=== PATIENT | male | born 1945 | race Caucasian/White ===

== ENCOUNTER → 2018-01-30 07:16 | Outpatient (CLI) | payer MEDICARE, BC, SELFPAY ==
[2018-01-30 08:35] LABS: BUN Creatinine Ratio 22.5 (6-22); Blood Urea Nitrogen 18 mg/dL (9-20); Calcium 9.7 mg/dL (8.4-10.2); Carbon Dioxide 28 mmol/L (22-32); Chloride 104 mmol/L (98-107); Estimated Glomerular Filt Rate > 60.0 mL/min (>60); Glucose 150 mg/dL (80-110); HEMOLYSIS < 15 (0-50); Potassium 5.3 mmol/L (3.4-5.1); Sodium 143 mmol/L (137-145)
[2018-01-30 08:36] LABS: Hemoglobin A1C% w Est Avg Glu 6.6 % (4.0-6.0)
[2018-01-30 09:02] LABS: Prostate Specific Antigen 0.318 ng/mL (0.10-4.00)
== END ==
PROVIDERS: PCP Internal Medicine; Visit Provider Internal Medicine
DX: I10 Essential (primary) hypertension (principal); E11.9 Type 2 diabetes mellitus without complications; N40.0 Benign prostatic hyperplasia without lower urinary tract symptoms
CPT/HCPCS: 36415; 80048; 83036; 84153

== ENCOUNTER → 2019-11-15 14:42 | Outpatient (ROUT) | payer MEDICARE, BC, SELFPAY ==
[2019-11-15 15:34] LABS: Aspartate Aminotransferase 34 IU/L (17-59); BUN Creatinine Ratio 26.7 (6-22); Blood Urea Nitrogen 20 mg/dL (9-20); Calcium 9.8 mg/dL (8.4-10.2); Carbon Dioxide 27 mmol/L (22-32); Chloride 100 mmol/L (98-107); Cholesterol 139 mg/dL (140-199); Estimated Glomerular Filt Rate > 60.0 mL/min (>60); Glucose 176 mg/dL (80-110); HDL Cholesterol 44 mg/dL (40-60); HEMOLYSIS < 15 (0-50); LDL Cholesterol Calculated 71 mg/dL (<100); Potassium 4.3 mmol/L (3.4-5.1); Sodium 136 mmol/L (137-145); Triglycerides 121 mg/dL (35-150)
[2019-11-15 17:00] LABS: Hemoglobin A1C% w Est Avg Glu 7.3 % (4.0-6.0)
== END ==
PROVIDERS: Family Provider Internal Medicine; PCP Internal Medicine; Visit Provider Internal Medicine
DX: I10 Essential (primary) hypertension (principal); E78.2 Mixed hyperlipidemia; E11.9 Type 2 diabetes mellitus without complications
CPT/HCPCS: 80048; 80061; 83036; 84450

== ENCOUNTER → 2019-11-20 14:10 | Outpatient (CLI) | payer MEDICARE, BC, SELFPAY ==
[2019-11-20 14:26] LABS: Bacteria Urine None Seen
[2019-11-20 15:48] LABS: Appearance Urine UA CLEAR; Bilirubin Urine UA NEGATIVE (NEGATIVE); Color Urine UA YELLOW; Glucose Urine UA NEGATIVE (Negative); Ketones Urine UA NEGATIVE (NEGATIVE); Leukocyte Esterase Urine UA NEGATIVE (NEGATIVE); Nitrite Urine UA NEGATIVE (Negative); Occult Blood Urine UA 2+ (Negative); Protein Urine UA NEGATIVE (Negative); Specific Gravity Urine UA >=1.030 (1.000-1.035); Urobilinogen Urine UA 0.2 E.U./dL (0.2)
[2019-11-20 16:10] LABS: Culture Indicated Urine Cult Not Indicated; RBC Urine 5-10/HPF (0-5/HPF); Squamous Epithelial Cell Urine 0-1 /HPF (0-5/HPF); WBC Urine 0-1/HPF (0-5/HPF)
== END ==
PROVIDERS: Family Provider Internal Medicine; PCP Internal Medicine; Referring Provider Internal Medicine; Visit Provider Internal Medicine
DX: R31.9 Hematuria, unspecified (principal)
CPT/HCPCS: 81001

== ENCOUNTER → 2019-11-28 14:20 | Outpatient (CLI) | payer MEDICARE, BC, SELFPAY ==
--- NOTE | 2019-11-28 | DI.CT.S_ITS ---
PROCEDURE: CT ABDOMEN PELVIS WO/W CON INDICATIONS: Hematuria, unspecified TECHNIQUE: Optional 5 mm thick noncontrast images acquired from the diaphragm to the symphysis pubis. After the administration of intravenous contrast, 5 mm thick images acquired from the diaphragm to the symphysis pubis after a 10-minute delay. 2 mm thick coronal and sagittal reformats were then performed of the kidneys and ureters. For radiation dose reduction, the following was used: automated exposure control, adjustment of mA and/or kV according to patient size. COMPARISON: CT, KUB - CT (PNL), 03/19/2008, 7:10. CT, PELVIS WITH CONTRAST, 05/28/2009, 9:28. FINDINGS: Image quality: Excellent. Lung bases: Lung bases are clear. Heart size is normal. Urinary system: Both kidneys are normal in size, without hydronephrosis. There are one or two punctate nonobstructing right midpole intrarenal calculi. Parapelvic cysts in the left upper pole are present. The right UVJ is obscured partially by beam hardening artifact from right hip arthroplasty, but no definite ureteral calcifications are otherwise visualized. To the extent urinary bladder can be visualized, there are no discrete bladder calcifications. There are numerous brachytherapy seeds in a mildly enlarged prostate gland. Minor, physiologic perinephric fat stranding. There is normal bilateral renal enhancement. Renal calyces appear normal in morphology when filled with contrast. Opacified portions of both ureters demonstrate normal caliber. Bladder wall thickness is normal. Other solid organs: Liver is normal in size and enhancement. Gallbladder is normal . Biliary system is non dilated. Pancreas enhances normally. Spleen is normal in size and enhancement. No adrenal nodules. Peritoneum and bowel: Bowel loops demonstrate normal wall thickness and caliber. No free fluid or air. Nodes and vessels: No retroperitoneal or mesenteric adenopathy by size criteria. Aorta and inferior vena cava are normal in size. Abdominal wall: No ventral hernias. Pelvis: No pathologic free pelvic fluid. No inguinal hernias or adenopathy. Bones: No suspicious bony lesions. L4-5 posterior fusion hardware. Partial sacralization of the right L5 transverse process. Right hip arthroplasty components are in place. There is a benign bone island in the left iliac bone present on prior study. No vertebral body compression fractures. IMPRESSION: 1. Nonobstructing right intrarenal calcification, potentially etiology of hematuria. 2. No evidence of obstructive uropathy. 3. Brachytherapy seeds in the prostate gland. 4. Postsurgical changes in the bones as described. Dictated by: Evelia Lim M.D. on 11/28/2019 at 14:58 Approved by: Evelia Lim M.D. on 11/28/2019 at 15:14
== END ==
PROVIDERS: Family Provider Internal Medicine; PCP Internal Medicine; Referring Provider Student in an Organized Health Care Education/Training Program; Visit Provider Student in an Organized Health Care Education/Training Program
DX: R31.9 Hematuria, unspecified (principal); N20.0 Calculus of kidney
CPT/HCPCS: 74178; Q9967

== ENCOUNTER → 2020-05-21 14:30 | Outpatient (ROUT) | payer MEDICARE, BC, SELFPAY ==
[2020-05-21 14:48] LABS: Add Manual Diff / Slide Review NO; Basophils Absolute Auto 100 /uL (0-100); Eosinophils Absolute Auto 200 /uL (0-450); Eosinophils Percent Auto 3.7 % (2-4); Hematocrit 40.7 % (41-53); Hemoglobin 13.8 g/dL (13.5-17.5); Lymphocytes Absolute Auto 1700 /uL (1100-4500); Lymphocytes Percent Auto 26.6 % (25-40); Mean Corpuscular HGB Conc 33.8 % (30-36); Mean Corpuscular Hemoglobin 30.8 PG (26-34); Mean Corpuscular Volume 91.2 fL (80-100); Monocytes Absolute Auto 400 /uL (0-900); Neutrophils Absolute Auto 4000 /uL (1500-7000); Neutrophils Percent Auto 62.7 % (50-75); Platelet Count 225 X10^3/uL (150-400); Red Blood Cell Count 4.46 X10^6/uL (4.5-5.9); Red Cell Distribution Width 13.4 % (11.6-14.8); White Blood Cell Count 6.4 X10^3/uL (4.5-11.0)
[2020-05-21 15:28] LABS: TSH w/ Reflex to FT4 3.82 uIU/mL (0.47-4.68)
[2020-05-21 15:43] LABS: Alanine Aminotransferase 33 IU/L (<50); Albumin 4.2 g/dL (3.5-5.0); Albumin Globulin Ratio 1.4 (1.0-2.8); Alkaline Phosphatase 86 U/L (38-126); Aspartate Aminotransferase 32 IU/L (17-59); Bilirubin Total 0.4 mg/dL (0.2-1.3); Blood Urea Nitrogen 18 mg/dL (9-20); Calcium 9.6 mg/dL (8.4-10.2); Carbon Dioxide 29 mmol/L (22-32); Chloride 99 mmol/L (98-107); Cholesterol 150 mg/dL (140-199); Estimated Glomerular Filt Rate > 60.0 mL/min (>60); Globulin 2.9 g/dL (1.7-4.1); Glucose 312 mg/dL (80-110); HDL Cholesterol 42 mg/dL (40-60); HEMOLYSIS < 15 (0-50); LDL Cholesterol Calculated 81 mg/dL (<100); Potassium 4.7 mmol/L (3.4-5.1); Sodium 133 mmol/L (137-145); Total Protein 7.1 g/dL (6.3-8.2); Triglycerides 135 mg/dL (35-150)
[2020-05-21 16:00] LABS: Hemoglobin A1C% w Est Avg Glu 10.1 % (4.0-6.0)
== END ==
PROVIDERS: Family Provider Internal Medicine; PCP Internal Medicine; Visit Provider Internal Medicine
DX: N40.0 Benign prostatic hyperplasia without lower urinary tract symptoms (principal); E11.69 Type 2 diabetes mellitus with other specified complication
CPT/HCPCS: 80053; 80061; 83036; 84153; 84443; 85025

== ENCOUNTER → 2021-10-12 11:07 | Outpatient (CLI) | payer MEDICARE, BC, SELFPAY ==
[2021-10-12 11:46] LABS: Hemoglobin A1C% w Est Avg Glu 7.7 % (4.0-6.0)
[2021-10-12 11:47] LABS: Hematocrit 38.6 % (41-53); Hemoglobin 13.5 g/dL (13.5-17.5); Mean Corpuscular HGB Conc 34.9 % (30-36); Mean Corpuscular Hemoglobin 31.3 PG (26-34); Mean Corpuscular Volume 89.5 fL (80-100); Platelet Count 278 X10^3/uL (150-400); Red Blood Cell Count 4.32 X10^6/uL (4.5-5.9); White Blood Cell Count 5.9 X10^3/uL (4.5-11.0)
[2021-10-12 12:05] LABS: Alanine Aminotransferase 27 IU/L (<50); Albumin 4.6 g/dL (3.5-5.0); Albumin Globulin Ratio 1.4 (1.0-2.8); Alkaline Phosphatase 75 U/L (38-126); Aspartate Aminotransferase 30 IU/L (17-59); BUN Creatinine Ratio 20.3 (6-22); Bilirubin Total 0.3 mg/dL (0.2-1.3); Blood Urea Nitrogen 16 mg/dL (9-20); Calcium 9.5 mg/dL (8.4-10.2); Carbon Dioxide 29 mmol/L (22-32); Chloride 99 mmol/L (98-107); Cholesterol 150 mg/dL (140-199); Estimated Glomerular Filt Rate > 60 mL/min (>60); Globulin 3.2 g/dL (1.7-4.1); Glucose 182 mg/dL (80-110); HDL Cholesterol 45 mg/dL (40-60); HEMOLYSIS < 15 (0-50); LDL Cholesterol Calculated 86 mg/dL (<100); Potassium 4.5 mmol/L (3.4-5.1); Sodium 135 mmol/L (137-145); Total Protein 7.8 g/dL (6.3-8.2); Triglycerides 94 mg/dL (35-150)
[2021-10-12 12:25] LABS: Creatinine Urine Random 108.7 mg/dL
[2021-10-12 12:28] LABS: Prostate Specific Antigen 1.18 ng/mL (0.10-4.00)
[2021-10-12 12:29] LABS: Microalbumi Creatinin Ratio Ur 7.3 ug/mg CR (<30); Microalbumin Urine Random 0.8 mg/dL (0-1.6)
[2021-10-12 12:53] LABS: TSH w/ Reflex to FT4 3.58 uIU/mL (0.47-4.68)
== END ==
PROVIDERS: Family Provider Internal Medicine; PCP Internal Medicine; Referring Provider Internal Medicine; Visit Provider Internal Medicine
DX: E11.69 Type 2 diabetes mellitus with other specified complication (principal); E78.5 Hyperlipidemia, unspecified; I10 Essential (primary) hypertension; E78.2 Mixed hyperlipidemia; N13.8 Other obstructive and reflux uropathy; N40.1 Benign prostatic hyperplasia with lower urinary tract symptoms
CPT/HCPCS: 36415; 80053; 80061; 82043; 82570; 83036; 84153; 84443; 85027

== ENCOUNTER → 2021-10-26 09:41 | Outpatient (CLI) | payer MEDICARE, BC, SELFPAY ==
[2021-10-26 13:01] LABS: COVID19 -Nasal RAPID Negative (Negative)
== END ==
PROVIDERS: Family Provider Internal Medicine; PCP Internal Medicine; Visit Provider Surgery
DX: Z01.812 Encounter for preprocedural laboratory examination (principal); Z20.822 Contact with and (suspected) exposure to COVID-19
CPT/HCPCS: 87635; C9803

== ENCOUNTER 2021-10-27 08:35 | Day surgery (SDC) | payer MEDICARE, BC, SELFPAY ==
[2021-10-27] MEDS: LACTATED RINGERS 1,000 ML 200 ML IV (08:45)
[2021-10-27 09:12] VITALS: BP 180/87; PULSE 78; RESP 16; TEMP 37.1; O2SAT 97; BMI 27.4
--- NOTE | 2021-10-27 09:38 | PM.HP.1 ---
History of Present Illness History of Present Illness Date Patient Seen: 10/27/21 Time Patient Seen: 09:38 Chief complaint: SDC Narrative: The patient presents for colorectal screening. Personal history of colonic polyps with previous colonoscopy.. No personal or family history of colon cancer. On further history denies any recent gastrointestinal symptoms. No nausea, vomiting, abdominal pain, loss of appetite, unexplained weight loss, change in bowel habits, diarrhea, constipation, melena, hematochezia, or bright red blood per rectum. Patient History Medical History Allergic rhinitis BPH w urinary obs/LUTS Cerumen impaction DM type 2 with diabetic dyslipidemia Essential hypertension Mixed hyperlipidemia Neoplasm of uncertain behavior of skin Overweight Primary osteoarthritis involving multiple joints Family & Social History Social History: household members spouse Tobacco & Substance use: Smoking Status Never smoker alcohol intake current alcohol intake frequency 0-2 drinks per day Substance Use Type does not use Meds Home Medications and Allergies Home Medications Medication Instructions Recorded Confirmed Type loratadine 10 mg tablet (Claritin) 10 mg PO DAILY 10/12/21 10/27/21 History losartan 50 mg tablet 50 mg PO BEDTIME #90 tabs 10/12/21 10/27/21 Rx metformin 500 mg tablet 1,000 mg PO BID #360 tabs 10/12/21 10/27/21 Rx pravastatin 40 mg tablet 40 mg PO BEDTIME #90 tabs 10/12/21 10/27/21 Rx sitagliptin 50 mg tablet (Januvia) 50 mg PO DAILY #90 tabs 10/12/21 10/27/21 Rx Allergies Allergy/AdvReac Type Severity Reaction Status Date / Time simvastatin [SIMVASTATIN] Allergy Unknown Verified 10/27/21 08:47 Exam Vital Signs (past 8 hours): - 10/27/21 09:12 Temperature 98.7 F Pulse Rate 78 Respiratory Rate 16 Blood Pressure 180/87 H Pulse Oximetry 97 Oxygen Delivery Method Room Air Oxygen Delivery Method Room Air Narrative Exam Narrative: General adult male alert oriented no acute distress Abdomen soft nontender nondistended Assessment & Plan Assessment & Plan narrative: The patient requires colorectal screening and colonoscopy is recommended. Technical details were discussed. Risks, benefits, alternatives explained. Risks including but not limited to myocardial infarction, aspiration, bleeding, pain, missed lesion, incomplete examination, need for further radiographic studies, colonic perforation, and need for major abdominal surgery were discussed. All questions were answered to their satisfaction, and they are in agreement with this plan. Time Spent With Patient Critical Care time: I spent a total of [] minutes of critical care time on this patient's care today; this time is exclusive of procedural time.
[2021-10-27] MEDS: fentaNYL 250 MCG/5 ML INJ 150 MCG IV (09:55)
[2021-10-27] MEDS: MIDAZOLAM 5 MG/5 ML VIAL 4 MG IV (09:55)
--- NOTE | 2021-10-27 10:10 | PM.OP.COLON ---
Operative Date/Time/Diagnoses Date of procedure: 10/27/21 Time of procedure: 10:10 Pre-op diagnosis: Personal history of colonic polyps Post-op diagnosis: same Procedure & Clinicians Study performed: Colonoscopy Same procedure as scheduled: Yes Indications: Personal history of colonic polyps Surgeon: Bryce Swift Procedure Notes Procedure in detail: Medications: Conscious sedation using 4mg IV midazolam and 150mcg IV of fentanyl The history and physical was performed/updated and the patient is ASA class is 2. The procedure was discussed in detail with the patient. Potential risks complications including infection, bleeding, missed diagnosis, perforation, need for surgery, and were explained. Their questions were answered and informed consent was obtained. Patient was brought to the procedure room and placed standard monitoring equipment. The patient's vital signs were monitored continuously throughout the entire procedure. Prior to starting time-out was performed. The patient was placed in the left lateral recumbent position. Procedural sedation was administered. Examination began with a thorough inspection of the perianal area there was no evidence of fissures, fistulae, external hemorrhoids or cutaneous malignancy. The colonoscopy scope was then placed into the anal canal and was advanced to the cecum, which was identified by the ileocecal valve, the appendiceal orifice and the confluence of the taenia. The scope was then slowly withdrawn examining colon thoroughly in all directions, irrigating it of any residual stool. FINDINGS 1. No masses or polyps 2. Sigmoid diverticulosis-mild The patient tolerated the procedure well. They will be discharged once criteria are met. The prep was of good/excellent quality. The withdrawl time was 6 minutes. The sedation time was 19minutes. Specimen(s): none sent Complications: none Impression: Normal colonoscopy Post-procedure Recommendations: Colonoscopy in 10 years and High fiber diet Disposition: same day surgery
[2021-10-27 10:15] VITALS: BP 137/80; PULSE 87; RESP 16; TEMP 36.3; O2SAT 97
[2021-10-27 10:20] VITALS: BP 148/56; PULSE 87; RESP 14; O2SAT 97
[2021-10-27 10:25] VITALS: BP 140/84; PULSE 86; RESP 16; O2SAT 96
[2021-10-27 10:31] VITALS: BP 157/88; PULSE 89; RESP 14; TEMP 36.6; O2SAT 95
== END 2021-10-27 10:45 | disposition home or self-care (01) ==
PROVIDERS: Family Provider Internal Medicine; PCP Internal Medicine; Referring Provider Surgery; Visit Provider Surgery
PROC: 0DJD8ZZ Inspection of Lower Intestinal Tract, Via Natural or Artificial Opening Endoscopic (ICD-10-PCS; CPT 45378; principal; 2021-10-27 09:30)
DX: Z12.11 Encounter for screening for malignant neoplasm of colon (principal); Z86.010 Personal history of colon polyps; K57.30 Diverticulosis of large intestine without perforation or abscess without bleeding
CPT/HCPCS: G0105; 99152; J2250; J3010

== ENCOUNTER → 2022-07-08 10:32 | Outpatient (CLI) | payer MEDICARE, BC, SELFPAY ==
[2022-07-08 10:54] LABS: Hematocrit 40.4 % (41-53); Hemoglobin 13.4 g/dL (13.5-17.5); Mean Corpuscular Volume 90.8 fL (80-100); Platelet Count 276 X10^3/uL (150-400); Red Blood Cell Count 4.45 X10^6/uL (4.5-5.9); Red Cell Distribution Width 13.3 % (11.6-14.8); White Blood Cell Count 6.1 X10^3/uL (4.5-11.0)
[2022-07-08 11:28] LABS: Alanine Aminotransferase 25 IU/L (<50); Albumin 4.2 g/dL (3.5-5.0); Albumin Globulin Ratio 1.4 (1.0-2.8); Alkaline Phosphatase 93 U/L (38-126); Aspartate Aminotransferase 23 IU/L (17-59); BUN Creatinine Ratio 22.1 (6-22); Bilirubin Total 0.4 mg/dL (0.2-1.3); Blood Urea Nitrogen 15 mg/dL (9-20); Calcium 9.5 mg/dL (8.4-10.2); Carbon Dioxide 28 mmol/L (22-32); Chloride 98 mmol/L (98-107); Cholesterol 150 mg/dL (140-199); Estimated Glomerular Filt Rate > 60 mL/min (>60); Globulin 3.1 g/dL (1.7-4.1); Glucose 211 mg/dL (80-110); HDL Cholesterol 45 mg/dL (40-60); HEMOLYSIS < 15 (0-50); LDL Cholesterol Calculated 80 mg/dL (<100); Potassium 4.4 mmol/L (3.4-5.1); Sodium 136 mmol/L (137-145); Total Protein 7.3 g/dL (6.3-8.2); Triglycerides 126 mg/dL (35-150)
[2022-07-08 11:42] LABS: Hemoglobin A1C% w Est Avg Glu 9.8 % (4.0-6.0)
[2022-07-08 11:49] LABS: TSH w/ Reflex to FT4 4.56 uIU/mL (0.47-4.68)
[2022-07-08 12:15] LABS: Vitamin B12 264 pg/mL (239-931)
[2022-07-08 15:10] LABS: Microalbumi Creatinin Ratio Ur 8.9 ug/mg CR (<30); Microalbumin Urine Random 0.7 mg/dL (0-1.6)
== END ==
PROVIDERS: Family Provider Internal Medicine; PCP Internal Medicine; Referring Provider Internal Medicine; Visit Provider Internal Medicine
DX: C43.4 Malignant melanoma of scalp and neck (principal); E11.69 Type 2 diabetes mellitus with other specified complication; E78.2 Mixed hyperlipidemia; I10 Essential (primary) hypertension; E53.8 Deficiency of other specified B group vitamins; E78.5 Hyperlipidemia, unspecified
CPT/HCPCS: 36415; 80053; 80061; 82043; 82570; 82607; 83036; 84443; 85027

== ENCOUNTER → 2022-09-24 13:29 | Outpatient (CLI) | payer MEDICARE, BC, SELFPAY ==
--- NOTE | 2022-09-24 | DI.US.S_ITS ---
PROCEDURE: US SOFT TISSUE HEAD AND NECK INDICATIONS: MASS ON RIGHT SIDE posterior to the shoulder TECHNIQUE: Real-time scanning was performed of the neck region of interest, with image documentation. COMPARISON: None. FINDINGS: Palpable abnormality in the region of the posterior right shoulder. No mass, adenopathy, or fluid collection. IMPRESSION: No mass in the region of the palpable abnormality. Dictated by: Dhaval Reardon M.D. on 09/24/2022 at 18:29 Approved by: Dhaval Reardon M.D. on 09/24/2022 at 18:30
== END ==
PROVIDERS: Family Provider Internal Medicine; PCP Internal Medicine; Referring Provider Physician Assistant; Visit Provider Physician Assistant
DX: R22.2 Localized swelling, mass and lump, trunk (principal)
CPT/HCPCS: 76536

== ENCOUNTER → 2023-01-10 11:08 | Outpatient (CLI) | payer MEDICARE, BC, SELFPAY | PROVIDERS: Family Provider Internal Medicine; PCP Internal Medicine; Referring Provider Internal Medicine; Visit Provider Internal Medicine | DX: E11.69 Type 2 diabetes mellitus with other specified complication (principal); E78.5 Hyperlipidemia, unspecified | CPT/HCPCS: 36415; 83036 ==

== ENCOUNTER → 2023-04-12 11:26 | Outpatient (CLI) | payer MEDICARE, BC, SELFPAY ==
[2023-04-12 13:04] LABS: BUN Creatinine Ratio 21.3 (6-22); Blood Urea Nitrogen 16 mg/dL (9-20); Calcium 10.3 mg/dL (8.4-10.2); Carbon Dioxide 28 mmol/L (22-32); Chloride 92 mmol/L (98-107); Estimated Glomerular Filt Rate > 60 mL/min (>60); Glucose 174 mg/dL (80-110); HEMOLYSIS < 15 (0-50); Potassium 4.2 mmol/L (3.4-5.1); Sodium 131 mmol/L (137-145)
== END ==
PROVIDERS: Family Provider Internal Medicine; PCP Internal Medicine; Referring Provider Internal Medicine; Visit Provider Internal Medicine
DX: E11.69 Type 2 diabetes mellitus with other specified complication (principal); I10 Essential (primary) hypertension; E78.5 Hyperlipidemia, unspecified
CPT/HCPCS: 36415; 80048; 83036

== ENCOUNTER → 2023-07-21 10:48 | Outpatient (CLI) | payer MEDICARE, BC, SELFPAY ==
[2023-07-21 12:18] LABS: Hemoglobin 13.1 g/dL (13.5-17.5); Mean Corpuscular HGB Conc 35.5 % (30-36); Mean Corpuscular Hemoglobin 31.2 PG (26-34); Platelet Count 385 X10^3/uL (150-400); Red Cell Distribution Width 13.1 % (11.6-14.8); White Blood Cell Count 7.8 X10^3/uL (4.5-11.0)
[2023-07-21 12:31] LABS: Hemoglobin A1C% w Est Avg Glu 7.2 % (4.0-6.0)
[2023-07-21 12:49] LABS: Alanine Aminotransferase 16 IU/L (<50); Albumin 4.5 g/dL (3.5-5.0); Albumin Globulin Ratio 1.4 (1.0-2.8); Alkaline Phosphatase 73 U/L (38-126); Aspartate Aminotransferase 27 IU/L (17-59); BUN Creatinine Ratio 22.7 (6-22); Bilirubin Total 0.7 mg/dL (0.2-1.3); Blood Urea Nitrogen 15 mg/dL (9-20); Calcium 9.4 mg/dL (8.4-10.2); Carbon Dioxide 28 mmol/L (22-32); Chloride 88 mmol/L (98-107); Cholesterol 123 mg/dL (140-199); Estimated Glomerular Filt Rate > 60 mL/min (>60); Globulin 3.3 g/dL (1.7-4.1); Glucose 223 mg/dL (80-110); HDL Cholesterol 50 mg/dL (40-60); HEMOLYSIS 17 (0-50); LDL Cholesterol Calculated 64 mg/dL (<100); Potassium 3.8 mmol/L (3.4-5.1); Sodium 124 mmol/L (137-145); Total Protein 7.8 g/dL (6.3-8.2); Triglycerides 43 mg/dL (35-150)
[2023-07-21 13:10] LABS: TSH w/ Reflex to FT4 2.74 uIU/mL (0.47-4.68)
[2023-07-21 13:11] LABS: Prostate Specific Antigen 1.16 ng/mL (0.10-4.00)
[2023-07-21 17:44] LABS: Creatinine Urine Random 45.7 mg/dL
[2023-07-21 17:46] LABS: Microalbumin Urine Random < 0.6 mg/dL (0-1.6)
== END ==
PROVIDERS: Family Provider Internal Medicine; PCP Internal Medicine; Referring Provider Internal Medicine; Visit Provider Internal Medicine
DX: E78.2 Mixed hyperlipidemia (principal); E11.69 Type 2 diabetes mellitus with other specified complication; N40.1 Benign prostatic hyperplasia with lower urinary tract symptoms; I10 Essential (primary) hypertension; E78.5 Hyperlipidemia, unspecified; N13.8 Other obstructive and reflux uropathy
CPT/HCPCS: 36415; 80053; 80061; 82043; 82570; 83036; 84153; 84443; 85027

== ENCOUNTER → 2023-08-12 11:17 | Outpatient (CLI) | payer MEDICARE, BC, SELFPAY ==
--- NOTE | 2023-08-12 11:18 | DI.CT.S_ITS ---
PROCEDURE: CT HEAD/BRAIN WO CON INDICATIONS: parkinsomism, rule out CVA TECHNIQUE: Noncontrast 4.5 mm thick angled axial sections acquired from the foramen magnum to the vertex, with coronal and sagittal reformats. For radiation dose reduction, the following was used: automated exposure control, adjustment of mA and/or kV according to patient size. COMPARISON: None. FINDINGS: Image quality: Diagnostic. CSF spaces: Basal cisterns are patent. No extra-axial fluid collections. Ventricles are normal in size and shape. Brain: No midline shift. No intracranial masses or hemorrhage. Parada-white matter interface is normal. Moderate cerebral and cerebellar volume loss with multifocal white matter chronic ischemic change noted. Atherosclerotic calcification noted associated with cavernous segments of both internal carotid arteries. Skull and face: Calvarium and visualized facial bones are intact, without suspicious lesions. Sinuses: Visualized sinuses and mastoids are clear. IMPRESSION: Moderate atrophy and mild white matter chronic ischemic change without acute hemorrhage or mass effect Approved by: Kishan Celis M.D. on 08/12/2023 at 18:30
== END ==
LOC: CT 11:18
PROVIDERS: Family Provider Internal Medicine; PCP Internal Medicine; Referring Provider Internal Medicine; Visit Provider Internal Medicine
DX: I65.23 Occlusion and stenosis of bilateral carotid arteries (principal); R29.818 Other symptoms and signs involving the nervous system
CPT/HCPCS: 70450

== ENCOUNTER → 2023-08-27 11:12 | Outpatient (CLI) | payer MEDICARE, BC, SELFPAY ==
--- NOTE | 2023-08-27 11:14 | DI.MRI.S_ITS ---
PROCEDURE: MR HEAD/BRAIN WO CON INDICATIONS: Parkinsons, please evaluate for stroke TECHNIQUE: Non-contrast axial T1 spin echo, axial T2 fast spin echo, sagittal and axial FLAIR, coronal T2 fast spin echo, axial gradient echo, axial diffusion and ADC through the brain. COMPARISON: [facility], CT, CT HEAD/BRAIN WO CON, 08/12/2023, 11:30. FINDINGS: Image quality: This examination is limited by involuntary motion artifact. CSF spaces: Ventricles appear symmetric in size and shape. Basal cisterns are patent. No extra-axial fluid collections. Brain: No intracranial bleeds or mass effects. There is cerebral volume loss for age. There are periventricular and deep white matter chronic small vessel ischemic changes. Brainstem appears normal. Diffusion-weighted images show no acute infarct. No chronic ischemic insults. Normal intravascular flow voids are present. Skull and face: Prominent scalp thinning can be seen involving the left posterior superior region. Calvarial bone marrow is normal in signal. Orbits are normal. Sinuses: Sinuses and mastoids are clear. IMPRESSION: No prior territorial infarct can be seen. No findings of acute or subacute infarction can be seen. Note is made of age-appropriate brain parenchymal volume loss and chronic small vessel ischemic changes. Note is made of prominent focal scalp thinning involving the left posterior superior region. Please correlate with prior history. Dictated by: Julian Garnett M.D. on 08/29/2023 at 10:19 Approved by: Julian Garnett M.D. on 08/29/2023 at 10:23
== END ==
PROVIDERS: Family Provider Internal Medicine; PCP Internal Medicine; Referring Provider Internal Medicine; Visit Provider Internal Medicine
DX: G20.A1 Parkinson's disease without dyskinesia, without mention of fluctuations (principal)
CPT/HCPCS: 70551

== ENCOUNTER 2023-10-06 10:30 | Outpatient (RCR) | payer MEDICARE, BC, SELFPAY ==
--- NOTE | 2023-10-03 17:22 | PT.OIE ---
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 Essential hypertension History of colonic polyps Malignant melanoma of scalp Mixed hyperlipidemia Overweight Parkinson disease Primary osteoarthritis involving multiple joints Visit Care Team Role Provider Type Ramón Rosas MD Attending Provider Physician Family Provider Primary Care Provider Referring Provider Specialty: Internal Medicine Address: [address] [place] [address] Email: [email or web address] Physical Therapy Initial Evaluation PT-OP-A Visit Information Start: 10/03/23 13:14 Freq: Status: Active Protocol: Document 10/03/23 10:40 DCW (Rec: 10/03/23 17:22 DCW [id number]) Out-Patient Physical Therapy Visit Information Visit Information Visit Type Initial Evaluation Visit Note Late arrival Visit Start Time 10:40 Visit Stop Time 11:15 Visit Number 1 Number of CELL MANAGER Visits 0 Evaluation Information Evaluation Date 10/03/23 PT-OP-B Current Condition Start: 10/03/23 13:14 Freq: Status: Active Protocol: Document 10/03/23 10:40 DCW (Rec: 10/03/23 17:22 DCW [id number]) Current Condition History of Current Condition Current Complaints Stiffness, decreased flexibility History of Current Condition Pt is a 77 year old male presenting with complaints of decreased flexibility. Pt was recently diagnosed with Parkinson's Disease, but overall is doing very well. Had a very good response to initial trial of carbidopa- levodopa. Pt notes he still plays Pickle Ball twice a week , still goes hiking and kayaking, and performed his yard work. Has not noticed any change in his strength, does not note and balance challenges of falling. Has a history of R KIMBERLY ~12 years ago . Admits that he hasn't noticed much of a difference in his baseline activity at this point. Pt's only complaint is that he just doesn't feel very flexible, feels like things are tight. Notes he does perform some dynamic stretching prior to Pickle Ball or hiking, but no sustained stretched PT-OP-C Subjective Start: 10/03/23 13:14 Freq: Status: Active Protocol: Document 10/03/23 10:40 DCW (Rec: 10/03/23 17:22 DCW [id number]) OP-PT Subjective Patient Comments Patient Comments I don't really struggle with anything. PT-OP-F Manual Assessment Start: 10/03/23 13:14 Freq: Status: Active Protocol: Document 10/03/23 10:40 DCW (Rec: 10/03/23 17:22 DCW [id number]) Manual Assessments Soft Tissue Assessment Soft Tissue Mobility Assessment General increased tone in soft tissue, particularly in bilateral hamstrings and pecs PT-OP-J Posture/Palpation/Skin Start: 10/03/23 13:14 Freq: Status: Active Protocol: Document 10/03/23 10:40 DCW (Rec: 10/03/23 17:22 DCW [id number]) Posture Evaluation Position Standing Evaluation View Anterior Head/C-Spine Posture Forward Head Shoulder Posture (L) Rounded,(R) Rounded Comments Posture Comments Pt in beginning stages of very mild forward head/rounded shoulder posturing PT-OP-Q Treatments Start: 10/03/23 13:14 Freq: Status: Active Protocol: Document 10/03/23 10:40 DCW (Rec: 10/03/23 17:22 DCW [id number]) Therapeutic Exercises Sitting Exercises Hamstring Sitting Exercise Name Seated Hamstring stretch Side bilateral Comments HEP Piriformis Sitting Exercise Name Seated figure-4 stretch Side bilateral Comments HEP Standing Exercises Pec Stretch Standing Exercise Name Corner pec stretch PT-OP-T Assessment and Plan Start: 10/03/23 13:14 Freq: Status: Active Protocol: Document 10/03/23 10:40 DCW (Rec: 10/03/23 17:22 DCW [id number]) Physical Therapy Assessment Evaluation Complexity Number of Personal Factors/Comorbidities 0 Number of Body Systems Impaired 1-2 Clinical Presentation at Evaluation Stable Impairments Impairments Posture,Soft Tissue Mobility, Tone Goals Two Impairment Pt exhibits mild forward head/ rounded shoulder posture Tc Operator Goal (LTG) Pt to exhibit posture WNL 75% of the time without verbal cueing LTG Duration 11/02/23 One Impairment Pt does not have an appropriate home exercise program Short Term Goal (STG) Pt to be independent and compliant with an appropriate HEP STG Duration 10/17/23 Assessment Summary Assessment Pt presents with very few subjective or objective complaints. Per pt's report, largely looking to improve overall flexibility. Spent time today with education of pt difference of dynamic stretching vs static stretching, and importance of holding stretch long enough to improve flexibility. Does have a mild forward head/ rounded shoulder posture. May benefit from one or two sessions of PT in order to improve posture, provide HEP, and educate pt in importance of flexibility and dealing with effects of progressive neurodegenerative disorder, but will unlikely need much more than that, as pt doing very well at this time. Physical Therapy Plan Frequency and Duration Frequency of Treatment 1-2x/week Plan of Care Start Date 10/03/23 Plan of Care End Date 11/02/23 Therapeutic Interventions Therapeutic Interventions Home Exercise Program,Joint Mobilizations,Manual Therapy, Patient/Caregiver Education, Self-Care/Home Management,Soft Tissue Mobilization, Therapeutic Activities, Therapeutic Exercises Next Visit Focus/Plan Next Note Type Treatment Note Next Visit Plan HEP, pt edu, posture
--- NOTE | 2023-10-03 17:22 | PT.OPPOC ---
Physical, Occupational & Speech Therapy At [facility] Current Diagnoses Parkinson's disease without dyskinesia, without mention of fluctuations (10/03/23) Stiffness of other specified joint, not elsewhere classified (10/03/23) Visit Care Team Role Provider Type Ramón Rosas MD Attending Provider Physician Family Provider Primary Care Provider Referring Provider Specialty: Internal Medicine Address: [address] [place] [address], [facility] Email: [email or web address] Plan Of Care PT-OP-T Assessment and Plan Start: 10/03/23 13:14 Freq: Status: Active Protocol: Document 10/03/23 10:40 DCW (Rec: 10/03/23 17:22 DCW [id number]) Physical Therapy Assessment Evaluation Complexity Number of Personal Factors/Comorbidities 0 Number of Body Systems Impaired 1-2 Clinical Presentation at Evaluation Stable Impairments Impairments Posture,Soft Tissue Mobility, Tone Goals Two Impairment Pt exhibits mild forward head/ rounded shoulder posture [employer] Quality Control Technician Goal (LTG) Pt to exhibit posture WNL 75% of the time without verbal cueing LTG Duration 11/02/23 One Impairment Pt does not have an appropriate home exercise program Short Term Goal (STG) Pt to be independent and compliant with an appropriate HEP STG Duration 10/17/23 Assessment Summary Assessment Pt presents with very few subjective or objective complaints. Per pt's report, largely looking to improve overall flexibility. Spent time today with education of pt difference of dynamic stretching vs static stretching, and importance of holding stretch long enough to improve flexibility. Does have a mild forward head/ rounded shoulder posture. May benefit from one or two sessions of PT in order to improve posture, provide HEP, and educate pt in importance of flexibility and dealing with effects of progressive neurodegenerative disorder, but will unlikely need much more than that, as pt doing very well at this time. Physical Therapy Plan Frequency and Duration Frequency of Treatment 1-2x/week Plan of Care Start Date 10/03/23 Plan of Care End Date 11/02/23 Therapeutic Interventions Therapeutic Interventions Home Exercise Program,Joint Mobilizations,Manual Therapy, Patient/Caregiver Education, Self-Care/Home Management,Soft Tissue Mobilization, Therapeutic Activities, Therapeutic Exercises Next Visit Focus/Plan Next Note Type Treatment Note Next Visit Plan HEP, pt edu, posture Plan of Care Dates Plan of Care Start Date 10/03/23 Plan of Care End Date 11/02/23 Electronically Signed by: Anthony Cervantes, SIENNA 10/03/23 [id number] If you are in agreement with this Plan of Care, please return a signed and dated copy. I have reviewed this Plan of Care and certify that the skilled therapy services above are required to meet the patient?s needs. Physician Signature Date Printed Name and Credentials Clinical Instructor Signature Printed Name and Credentials
--- NOTE | 2023-10-06 11:15 | PT.OTN ---
Current Diagnoses Parkinson's disease without dyskinesia, without mention of fluctuations (10/06/23) Stiffness of other specified joint, not elsewhere classified (10/06/23) Physical Therapy Treatment Note PT-OP-A Visit Information Start: 10/03/23 13:14 Freq: Status: Active Protocol: Document 10/06/23 10:30 DCW (Rec: 10/06/23 11:15 DCW [id number]) Out-Patient Physical Therapy Visit Information Visit Information Visit Type Treatment Note Visit Start Time 10:30 Visit Stop Time 11:15 Visit Number 2 Number of SENIOR SOFTWARE SYSTEMS ENGINEER Visits 0 Evaluation Information Evaluation Date 10/03/23 PT-OP-B Current Condition Start: 10/03/23 13:14 Freq: Status: Active Protocol: Document 10/03/23 10:40 DCW (Rec: 10/03/23 17:22 DCW [id number]) Current Condition History of Current Condition Current Complaints Stiffness, decreased flexibility History of Current Condition Pt is a 77 year old male presenting with complaints of decreased flexibility. Pt was recently diagnosed with Parkinson's Disease, but overall is doing very well. Had a very good response to initial trial of carbidopa- levodopa. Pt notes he still plays Pickle Ball twice a week , still goes hiking and kayaking, and performed his yard work. Has not noticed any change in his strength, does not note and balance challenges of falling. Has a history of R KIMBERLY ~12 years ago . Admits that he hasn't noticed much of a difference in his baseline activity at this point. Pt's only complaint is that he just doesn't feel very flexible, feels like things are tight. Notes he does perform some dynamic stretching prior to Pickle Ball or hiking, but no sustained stretched PT-OP-C Subjective Start: 10/03/23 13:14 Freq: Status: Active Protocol: Document 10/06/23 10:30 DCW (Rec: 10/06/23 11:15 DCW [id number]) OP-PT Subjective Patient Comments Patient Comments Pt doing well with HEP so far, brings today. PT-OP-F Manual Assessment Start: 10/03/23 13:14 Freq: Status: Active Protocol: Document 10/03/23 10:40 DCW (Rec: 10/03/23 17:22 DCW [id number]) Manual Assessments Soft Tissue Assessment Soft Tissue Mobility Assessment General increased tone in soft tissue, particularly in bilateral hamstrings and pecs PT-OP-J Posture/Palpation/Skin Start: 10/03/23 13:14 Freq: Status: Active Protocol: Document 10/03/23 10:40 DCW (Rec: 10/03/23 17:22 DCW [id number]) Posture Evaluation Position Standing Evaluation View Anterior Head/C-Spine Posture Forward Head Shoulder Posture (L) Rounded,(R) Rounded Comments Posture Comments Pt in beginning stages of very mild forward head/rounded shoulder posturing PT-OP-Q Treatments Start: 10/03/23 13:14 Freq: Status: Active Protocol: Document 10/06/23 10:30 DCW (Rec: 10/06/23 11:15 DCW [id number]) Therapeutic Exercises Supine Exercises Horiz Adduction Supine Exercise Name Horizontal Adduction Side bilateral Resistance 3# Pec Stretch Supine Exercise Name Pec Stretch on foam roll Side bilateral Serratus Punch Supine Exercise Name Serratus punch Side bilateral Resistance 3# Sitting Exercises Extension Sitting Exercise Name Shoulder Extension Side bilateral Resistance Lv 3 Rows Sitting Exercise Name Rows Side bilateral Resistance Lv 3 Self-Care/Home Management Treatment Education Other Education In-depth discussion regarding progression of activities, improving activity tolerance, increasing distance and elevation changes of walks, and information on LSVT BIG program going forward. PT-OP-T Assessment and Plan Start: 10/03/23 13:14 Freq: Status: Active Protocol: Document 10/06/23 10:30 DCW (Rec: 10/06/23 11:15 DCW [id number]) Physical Therapy Assessment Impairments Impairments Posture,Soft Tissue Mobility, Tone Goals Two Impairment Pt exhibits mild forward head/ rounded shoulder posture Glass Mould Cleaner Goal (LTG) Pt to exhibit posture WNL 75% of the time without verbal cueing LTG Duration 11/02/23 One Impairment Pt does not have an appropriate home exercise program Short Term Goal (STG) Pt to be independent and compliant with an appropriate HEP STG Duration 10/17/23 Assessment Summary Assessment Addition of more stretching and strengthening activities for HEP, as well as education for pt and his regarding LSVT BIG. At this time, pt does not have any functional concerns and goals, and therefore is not especially appropriate for skilled therapeutic intervention. Would recommend LSVT BIG in the future if pt is willing. Physical Therapy Plan Frequency and Duration Frequency of Treatment 1-2x/week Plan of Care Start Date 10/03/23 Plan of Care End Date 11/02/23 Therapeutic Interventions Therapeutic Interventions Home Exercise Program,Joint Mobilizations,Manual Therapy, Patient/Caregiver Education, Self-Care/Home Management,Soft Tissue Mobilization, Therapeutic Activities, Therapeutic Exercises Discharge Physical Therapy Discharge Comments No further indication for out- patient PT
== END 2023-10-12 12:51 | disposition home or self-care (01) ==
LOC: PHYS 10:30
PROVIDERS: Family Provider Internal Medicine; PCP Internal Medicine; Referring Provider Internal Medicine; Visit Provider Internal Medicine
DX: G20.A1 Parkinson's disease without dyskinesia, without mention of fluctuations (principal); M25.69 Stiffness of other specified joint, not elsewhere classified
CPT/HCPCS: 97110; 97161; 97535

== ENCOUNTER → 2024-02-07 16:07 | Outpatient (CLI) | payer MEDICARE, BC, SELFPAY ==
[2024-02-07 17:18] LABS: Hemoglobin A1C% w Est Avg Glu 6.7 % (4.0-6.0)
[2024-02-07 18:02] LABS: BUN Creatinine Ratio 19.7 (6-22); Blood Urea Nitrogen 14 mg/dL (9-20); Calcium 9.5 mg/dL (8.4-10.2); Carbon Dioxide 25 mmol/L (22-32); Chloride 93 mmol/L (98-107); Estimated Glomerular Filt Rate > 60 mL/min (>60); Glucose 125 mg/dL (80-110); HEMOLYSIS < 15 (0-50); Potassium 4.2 mmol/L (3.4-5.1); Sodium 127 mmol/L (137-145)
== END ==
PROVIDERS: Family Provider Internal Medicine; PCP Internal Medicine; Referring Provider Internal Medicine; Visit Provider Internal Medicine
DX: E11.69 Type 2 diabetes mellitus with other specified complication (principal); I10 Essential (primary) hypertension; E78.5 Hyperlipidemia, unspecified
CPT/HCPCS: 80048; 83036

== ENCOUNTER → 2024-04-02 15:07 | Outpatient (CLI) | payer MEDICARE, BC, SELFPAY ==
--- NOTE | 2024-04-02 15:08 | DI.MRI.S_ITS ---
PROCEDURE: MR CERVICAL SPINE WO CON INDICATIONS: gait disorder TECHNIQUE: Noncontrast sagittal T1 spin echo and T2 fast spin echo, sagittal STIR, foraminal oblique sagittal T2 fast spin echo, and axial gradient echo or T2 fast spin echo through the cervical spine. COMPARISON: None. FINDINGS: Image quality: Excellent. Alignment and Curvature: There is loss of normal cervical lordosis. 2 mm of retrolisthesis of C3 on C4. 4 mm of anterolisthesis of C4 on C5. 3 mm of retrolisthesis of C5 on C6. 2 mm of retrolisthesis of C6 on C7. 3 mm of anterolisthesis of C7 on T1. Bone Marrow: Marrow demonstrates normal overall signal. Moderate reactive signal within the endplates adjacent to the C3-C4, C4-C5, and C6-C7 intervertebral discs. Mild reactive signal within the remaining cervical and upper thoracic endplates. Spinal Cord: Visualized spinal cord has normal size and signal. No cerebellar tonsillar herniation. Paraspinous Soft Tissues: No paravertebral masses. Prevertebral soft tissues are normal in thickness. C2-C3: Moderate disc desiccation. Mild diffuse disc bulge. Mild facet and uncovertebral hypertrophy bilaterally. Mild canal stenosis. Moderate left and mild right foraminal stenosis. C3-C4: Severe disc height loss and desiccation. Mild diffuse disc bulge/osteophyte. Moderate bilateral facet and uncovertebral hypertrophy. Moderate to severe canal stenosis. Mild cord flattening. Severe bilateral foraminal stenosis with bilateral C4 nerve root compression. C4-C5: Moderate disc height loss and desiccation. Mild diffuse disc bulge. Moderate facet and uncovertebral hypertrophy bilaterally. Mild canal stenosis. Moderate right and severe left foraminal stenosis. Left C5 nerve root compression. C5-C6: Moderate disc height loss and desiccation. Mild diffuse disc bulge. Mild facet and uncovertebral hypertrophy bilaterally. Moderate canal stenosis. Severe bilateral foraminal stenosis with bilateral C6 nerve root compression. C6-C7: Moderate disc height loss and desiccation. Mild diffuse disc bulge/osteophyte. Moderate facet and uncovertebral hypertrophy bilaterally. Moderate canal stenosis. Severe bilateral foraminal stenosis with bilateral C7 nerve root compression. C7-T1: Moderate disc desiccation. Mild disc height loss and diffuse disc bulge. Mild facet and uncovertebral hypertrophy bilaterally. Mild canal stenosis. Moderate bilateral foraminal stenosis. IMPRESSION: 1. Multilevel degenerative disc and facet disease, as well as uncovertebral hypertrophy. 2. Multilevel canal stenoses, worst at C3-C4 where there is mild cord flattening. 3. Multilevel foraminal stenoses, worst at C3-C4, C4-C5, C5-C6, and C6-C7 where there is associated intraforaminal nerve root compression. Recommend correlation with clinical symptoms to ascertain relevance of these findings. Dictated by: Daniel Chong M.D. on 04/02/2024 at 16:49 Approved by: Daniel Chong M.D. on 04/02/2024 at 16:53
== END ==
PROVIDERS: Family Provider Internal Medicine; PCP Internal Medicine; Referring Provider Internal Medicine; Visit Provider Internal Medicine
DX: M50.31 Other cervical disc degeneration, high cervical region (principal); M47.812 Spondylosis without myelopathy or radiculopathy, cervical region; M48.02 Spinal stenosis, cervical region; R26.9 Unspecified abnormalities of gait and mobility
CPT/HCPCS: 72141

== ENCOUNTER → 2024-07-19 10:44 | Outpatient (CLI) | payer MEDICARE, BC, SELFPAY ==
--- NOTE | 2024-07-19 10:46 | DI.RAD.S_ITS ---
PROCEDURE: XR KNEE RT 3V INDICATIONS: Right knee pain after pickleball TECHNIQUE: 3 views of the knee were acquired. COMPARISON: None. FINDINGS AND IMPRESSION: Mild osseous degenerative changes. No displaced fracture. No dislocation. [id number] joint effusion and chondrocalcinosis. Patellar enthesopathy. If there is high concern for further derangement, consider MRI evaluation. Dictated by: Yoseph Hoyt M.D. on 07/19/2024 at 11:32 Approved by: Yoseph Hoyt M.D. on 07/19/2024 at 11:32
== END ==
PROVIDERS: Family Provider Internal Medicine; PCP Internal Medicine; Referring Provider Physician Assistant Medical; Visit Provider Physician Assistant Medical
DX: M25.561 Pain in right knee (principal); M25.461 Effusion, right knee; M11.261 Other chondrocalcinosis, right knee
CPT/HCPCS: 73562

== ENCOUNTER → 2024-08-21 10:50 | Outpatient (CLI) | payer MEDICARE, BC, SELFPAY ==
[2024-08-21 11:51] LABS: Hemoglobin A1C% w Est Avg Glu 6.7 % (4.0-6.0)
[2024-08-21 12:05] LABS: Aspartate Aminotransferase 24 IU/L (17-59); BUN Creatinine Ratio 20.3 (6-22); Blood Urea Nitrogen 14 mg/dL (9-20); Calcium 9.8 mg/dL (8.4-10.2); Carbon Dioxide 24 mmol/L (22-32); Chloride 94 mmol/L (98-107); Cholesterol 193 mg/dL (140-199); Estimated Glomerular Filt Rate > 60 mL/min (>60); Glucose 155 mg/dL (70-99); HDL Cholesterol 56 mg/dL (40-60); HEMOLYSIS < 15 (0-50); LDL Cholesterol Calculated 121 mg/dL (<100); Potassium 4.4 mmol/L (3.4-5.1); Sodium 128 mmol/L (137-145); Triglycerides 81 mg/dL (35-150)
[2024-08-21 12:34] LABS: Prostate Specific Antigen 1.38 ng/mL (0.10-4.00)
== END ==
PROVIDERS: Family Provider Internal Medicine; PCP Internal Medicine; Referring Provider Internal Medicine; Visit Provider Internal Medicine
DX: E11.69 Type 2 diabetes mellitus with other specified complication (principal); N40.1 Benign prostatic hyperplasia with lower urinary tract symptoms; E78.5 Hyperlipidemia, unspecified; N13.8 Other obstructive and reflux uropathy; E78.2 Mixed hyperlipidemia
CPT/HCPCS: 36415; 80048; 80061; 83036; 84153; 84450

== ENCOUNTER → 2025-02-26 11:26 | Outpatient (CLI) | payer MEDICARE, BC, SELFPAY ==
[2025-02-26 12:26] LABS: Hemoglobin A1C% w Est Avg Glu 6.9 % (4.0-6.0)
[2025-02-26 12:36] LABS: Blood Urea Nitrogen 15 mg/dL (9-20); Calcium 9.8 mg/dL (8.4-10.2); Carbon Dioxide 23 mmol/L (22-32); Chloride 95 mmol/L (98-107); Estimated Glomerular Filt Rate > 60 mL/min (>60); Glucose 131 mg/dL (70-99); HEMOLYSIS < 15 (0-50); Potassium 4.4 mmol/L (3.4-5.1); Sodium 130 mmol/L (137-145)
[2025-02-26 14:33] LABS: Microalbumi Creatinin Ratio Ur 12.0 ug/mg CR (<30)
== END ==
PROVIDERS: Family Provider Internal Medicine; PCP Internal Medicine; Referring Provider Internal Medicine; Visit Provider Internal Medicine
DX: E11.69 Type 2 diabetes mellitus with other specified complication (principal); E78.5 Hyperlipidemia, unspecified
CPT/HCPCS: 36415; 80048; 82043; 82570; 83036

== ENCOUNTER → 2025-02-26 13:43 | Outpatient (CLI) | payer MEDICARE, BC, SELFPAY ==
--- NOTE | 2025-02-26 13:44 | DI.RAD.S_ITS ---
PROCEDURE: XR HIP W PEL IF DONE LT 2V INDICATIONS: left hip pain TECHNIQUE: AP pelvis with lateral view(s) of the left hip(s). COMPARISON: [facility], , [id number] W PEL IF PERFORMED, 03/09/2016, 14:00. [facility], , HIP 2V RIGHT, 07/09/2014, 12:25. FINDINGS: Bones: No fractures or dislocations. Severe degenerative changes of the left hip with severe joint space narrowing, subchondral sclerosis and cystic change. Irregular appearance of the left femoral head. Right hip arthroplasty. Lower lumbar spine fixation hardware. Pelvic ring appears intact. No suspicious bony lesions. Soft tissues: The visualized bowel gas pattern is normal. No suspicious soft tissue calcifications. IMPRESSION: Severe left hip joint degeneration with abnormal curvature of the femoral head, avascular necrosis is not excluded. Recommend clinical correlation. Dictated by: Ritesh Baltazar M.D. on 02/26/2025 at 15:33 Approved by: Ritesh Baltazar M.D. on 02/26/2025 at 15:33
== END ==
PROVIDERS: Family Provider Internal Medicine; PCP Internal Medicine; Referring Provider Internal Medicine; Visit Provider Internal Medicine
DX: M16.12 Unilateral primary osteoarthritis, left hip (principal); Z96.641 Presence of right artificial hip joint
CPT/HCPCS: 73502

== ENCOUNTER 2025-04-23 15:48 | Emergency (ER) | payer MEDICARE, BC, SELFPAY ==
[2025-04-23 16:07] VITALS: BP 152/75; PULSE 103; RESP 14; TEMP 37.2; O2SAT 98; BMI 26.9
--- NOTE | 2025-04-23 16:12 | EKG_ITS ---
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
--- NOTE | 2025-04-23 16:12 | DI.RAD.S_ITS ---
PROCEDURE: XR CHEST 1V INDICATIONS: leg swelling TECHNIQUE: One view of the chest was acquired. COMPARISON: None. FINDINGS: Surgical changes and devices: None. Lungs and pleura: Lungs are clear. No pleural effusions or pneumothorax. Mediastinum: Mediastinal contours appear normal. Heart size is normal. Bones and chest wall: No suspicious bony lesions. Overlying soft tissues appear unremarkable. IMPRESSION: No acute cardiopulmonary abnormality is seen. Dictated by: Ritesh Baltazar M.D. on 04/23/2025 at 17:21 Approved by: Ritesh Baltazar M.D. on 04/23/2025 at 17:21
--- NOTE | 2025-04-23 16:14 | DI.US.S_ITS ---
PROCEDURE: US PERIPH VENOUS LOW EXTREM LT INDICATIONS: L leg swelling TECHNIQUE: Real-time imaging, as well as color and pulse Doppler interrogation, were performed of the lower extremity deep veins from the inguinal ligament to the popliteal fossa, with documentation of the visualized calf veins. COMPARISON: None. FINDINGS: The common femoral, femoral, popliteal, and the visualized calf veins are normally compressible, and free of intraluminal thrombus. Color and pulse Doppler demonstrate normal phasic intraluminal flow. There is normal augmentation response to distal compression maneuver. Calf vessels are not well seen secondary to edema. IMPRESSION: No findings of lower extremity deep venous thrombosis. Dictated by: Ritesh Baltazar M.D. on 04/23/2025 at 17:20 Approved by: Ritesh Baltazar M.D. on 04/23/2025 at 17:20
--- NOTE | 2025-04-23 17:01 | PC.NURSE ---
Moreno bag changed to leg bag and pt educated on how to change. US at bedside for study.
[2025-04-23 17:02] LABS: Appearance Urine UA CLEAR; Bilirubin Urine UA NEGATIVE (NEGATIVE); Color Urine UA YELLOW; Glucose Urine UA TRACE g/dL (Negative); Ketones Urine UA NEGATIVE (NEGATIVE); Leukocyte Esterase Urine UA NEGATIVE (NEGATIVE); Nitrite Urine UA NEGATIVE (Negative); Occult Blood Urine UA NEGATIVE (Negative); Protein Urine UA NEGATIVE (Negative); Specific Gravity Urine UA 1.020 (1.000-1.035); Urobilinogen Urine UA 1.0 E.U./dL (0.2); pH Urine UA 6.0 (4.5-8.0)
[2025-04-23 17:03] LABS: Add Manual Diff / Slide Review NO; Hematocrit 35.0 % (41-53); Hemoglobin 12.0 g/dL (13.5-17.5); Lymphocytes Absolute Auto 900 /uL (1100-4500); Mean Corpuscular HGB Conc 34.2 % (30-36); Mean Corpuscular Hemoglobin 29.6 PG (26-34); Mean Corpuscular Volume 86.7 fL (80-100); Platelet Count 441 X10^3/uL (150-400)
[2025-04-23 17:19] LABS: Culture Indicated Urine Cult Not Indicated
[2025-04-23 17:20] LABS: Alanine Aminotransferase 21 IU/L (<50); Albumin 4.5 g/dL (3.5-5.0); Albumin Globulin Ratio 1.3 (1.0-2.8); Alkaline Phosphatase 94 U/L (38-126); Blood Urea Nitrogen 19 mg/dL (9-20); Calcium 9.5 mg/dL (8.4-10.2); Carbon Dioxide 23 mmol/L (22-32); Chloride 96 mmol/L (98-107); Estimated Glomerular Filt Rate > 60 mL/min (>60); Globulin 3.4 g/dL (1.7-4.1); Glucose 176 mg/dL (70-99); HEMOLYSIS < 15 (0-50); Lipase 23 U/L (23-300); Magnesium 1.9 mg/dL (1.6-2.3); Potassium 3.9 mmol/L (3.4-5.1); Sodium 130 mmol/L (137-145); Total Protein 7.9 g/dL (6.3-8.2)
--- NOTE | 2025-04-23 17:23 | ED_ITS ---
<Statement entered by Vick Murray, DO - 04/23/25 22:57> Co-sign statement: I was available for consultation during this patient's emergency department visit. This chart is being signed by myself for administrative purposes only. I do not have direct contact with this patient during this visit. They were seen independently by the APC. HPI - Male Genitourinary General Chief complaint: Urogenital-Male Stated complaint: PC ref, urinary retention Time Seen by Provider: 04/23/25 16:11 Source: patient Mode of arrival: Wheelchair History of Present Illness HPI Narrative: 79-year-old male with past medical history Parkinson's, diabetes, BPH, hyperlipidemia, hypertension presents to the ED with 1 day of urinary retention. Patient states that the last time he urinated was at 2:30 a.m. this morning. Patient saw his PCP Dr. Rosas earlier today, was sent to the ED for further evaluation. Patient is also complaining of severe left leg swelling over the last several days. No fever, chills, chest pain, shortness of breath, nausea, vomiting, abdominal pain, dysuria, lightheadedness, dizziness, syncope. Related Data Home Medications ?Medication ?Instructions ?Recorded ?Confirmed loratadine 10 mg tablet (Claritin) 10 mg PO DAILY 09/3004/23/25 aspirin 81 mg capsule 81 mg PO DAILY 04/12/2304/02 pramipexole 0.25 mg tablet 0.5 mg PO 3XD 04/23/2504/02 Previous Rx's ?Medication ?Instructions ?Recorded carbidopa 25 mg-levodopa 100 mg 1 tab PO TID #270 tabs 04/05/24 tablet amlodipine 5 mg tablet 5 mg PO DAILY #90 tabs 08/21 empagliflozin 10 mg tablet 10 mg PO DAILY #90 tabs (Jardiance) metformin 500 mg tablet 1,000 mg (2 x 500 mg) PO BID #360 08/21/24 tabs pravastatin 40 mg tablet 40 mg PO ONCE PM #90 tabs tamsulosin 0.4 mg capsule 0.4 mg PO BEDTIME #90 caps 0 01/22/25 Allergies Allergy/AdvReac Type Severity Reaction Status Date / Time simvastatin (SIMVASTATIN) AdvReac Severe dizziness Verified 04/23/25 16:07 chlorthalidone AdvReac Intermediate hyponatremi Verified 04/23/25 16:07 a Review of Systems Constitutional Constitutional: Denies chills, Denies fatigue, Denies fever(s), Denies frequent falls, Denies lethargy and Denies weakness Eyes Eyes: Denies change in vision, Denies eye discharge, Denies irritation and Denies loss of vision ENT Ears, Nose, Mouth, and Throat: Denies change in voice, Denies dizziness, Denies neck pain, Denies sore throat and Denies throat swelling Cardiovascular Cardiovascular: Denies chest pain, Denies irregular heart rhythm, Denies lightheadedness, Denies palpitations, Denies dyspnea, Denies dyspnea on exertion and Denies orthopnea Respiratory Respiratory: Denies cough, Denies dyspnea, Denies dyspnea on exertion and Denies wheezing Gastrointestinal Gastrointestinal: Denies abdominal pain, Denies change in bowel habits, Denies diarrhea, Denies nausea and Denies vomiting Genitourinary Comments: Urinary retention Musculoskeletal Musculoskeletal: Denies neck pain and Denies numbness Comments: Left lower leg swelling Integumentary/Breasts Skin/Breast: Denies pruritus, Denies erythema, Denies rash and Denies wounds Neurologic Neurologic: Denies behavioral changes, Denies confusion, Denies dizziness, Denies frequent falls, Denies loss of vision, Denies numbness and Denies weakness Psychiatric Psychiatric: Denies anxiety, Denies behavioral changes, Denies confusion, Denies depression, Denies homicidal ideation and Denies suicidal ideation Endocrine Endocrine: Denies fatigue, Denies flushing and Denies palpitations Hematologic/Lymphatic Hematologic/Lymphatic: Denies easy bruising Allergic/Immunologic Allergic/Immunologic: Denies urticaria, Denies throat swelling and Denies wheezing Patient History Medical History Urinary retention Unilateral primary osteoarthritis, left hip Parkinson disease History of colonic polyps Malignant melanoma of scalp Allergic rhinitis Overweight 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 Mixed hyperlipidemia Essential hypertension DM type 2 with diabetic dyslipidemia Social History household members: spouse Smoking Status: Unknown if ever smoked alcohol intake: current Smoking Status: Unknown if ever smoked alcohol intake frequency: 0-2 drinks per day Exam Narrative Exam Narrative: Const General:?cooperative, healthy appearing and comfortable [facility] Head:?normal to inspection Ears:?hearing grossly normal bilaterally Nose:?external nose normal Face and sinus:?normal facial exam and sinuses nontender Mouth:?oral mucosae normal Throat:?posterior oropharynx normal Eyes General:?appearance normal, both eyes and all related structures Neck Neck:?normal visual inspection and no lymphadenopathy noted Resp Effort & Inspection:?normal respiratory effort Auscultation:?clear to auscultation bilaterally Cardio Rate:?regular rate Rhythm:?regular rhythm Musculoskeletal Left lower leg swelling. Compartments soft. Neurovascularly intact. Neuro General:?patient alert, patient awake and patient oriented x3 Initial Vital Signs Initial Vital Signs: Vital Signs Temperature 98.9 F 04/23/25 16:07 Pulse Rate 103 H 04/23/25 16:07 Respiratory Rate 14 04/23/25 16:07 Blood Pressure 152/75 H 04/23/25 16:07 Pulse Oximetry 98 04/23/25 16:07 Oxygen Delivery Method Room Air 04/23/25 16:07 Course Orders Ordered: ED Orders 04/23/25 16:12 XR chest 1V Stat EKG-12 Lead Stat 04/23/25 16:14 US periph venous low extrem lt Stat 04/23/25 16:34 Urinalysis and Microscopic Stat 04/23/25 16:55 Complete Blood Count AUTO DIFF Stat Comprehensive Metabolic Panel Stat Lipase Stat Magnesium Stat NT-proBNP (BNP-Adult 18+) Stat Troponin I Stat Vital Signs Vital signs: Vital Signs - 8 hr 04/23/25 16:07 04/23/25 18:56 Temperature 98.9 F Pulse Rate 103 H 99 H Respiratory Rate 14 16 Blood Pressure 152/75 H 169/78 H Pulse Oximetry 98 98 Oxygen Delivery Method Room Air Room Air MDM - Male Genitourinary Lab Data 04/23/25 16:55 04/23/25 16:55 Labs: Lab Results 04/23/25 04/23/25 Range/Units 16:34 16:55 WBC 9.0 (4.5-11.0) X10^3/uL RBC 4.03 L (4.5-5.9) X10^6/uL Hgb 12.0 L (13.5-17.5) g/dL Hct 35.0 L (41-53) % MCV 86.7 (80-100) fL MCH 29.6 (26-34) PG MCHC 34.2 (30-36) % RDW 13.3 (11.6-14.8) % Plt Count 441 H (150-400) X10^3/uL Neut % (Auto) 80.2 H (50-75) % Lymph % (Auto) 9.6 L (25-40) % Cobb % (Auto) 9.1 (3-14) % Eos % (Auto) 0.6 L (2-4) % Baso % (Auto) 0.5 (0-2) % Neut # (Auto) 7200 H (5505-6112) /uL Lymph # (Auto) 900 L (9637-7345) /uL Cobb # (Auto) 800 (0-900) /uL Eos # (Auto) 100 (0-450) /uL Baso # (Auto) 0 (0-100) /uL Sodium 130 L (137-145) mmol/L Potassium 3.9 (3.4-5.1) mmol/L Chloride 96 L (98-107) mmol/L Carbon Dioxide 23 (22-32) mmol/L BUN 19 (9-20) mg/dL Creatinine 0.62 L (0.66-1.25) mg/dL Estimated GFR > 60 (>60) mL/min BUN/Creatinine Ratio 30.6 H (6-22) Glucose 176 H (70-99) mg/dL Calcium 9.5 (8.4-10.2) mg/dL Magnesium 1.9 (1.6-2.3) mg/dL Total Bilirubin 0.3 (0.2-1.3) mg/dL AST 28 (17-59) IU/L ALT 21 (<50) IU/L Alkaline Phosphatase 94 (38-126) U/L Troponin I < 0.012 (0.01-0.034) ng/mL NT-Pro-B Natriuret Pep 381 (<450) pg/mL Total Protein 7.9 (6.3-8.2) g/dL Albumin 4.5 (3.5-5.0) g/dL Globulin 3.4 (1.7-4.1) g/dL Albumin/Globulin Ratio 1.3 (1.0-2.8) Lipase 23 (23-300) U/L Urine Color Yellow Urine Appearance Clear Urine pH 6.0 (4.5-8.0) Ur Specific [place] 1.020 (1.000-1.035) Urine Protein Negative (Negative) Urine Glucose (UA) Trace H (Negative) g/dL Urine Ketones Negative (NEGATIVE) Urine Occult Blood Negative (Negative) Urine Nitrate Negative (Negative) Urine Bilirubin Negative (NEGATIVE) Urine Urobilinogen 1.0 (0.2) E.U./dL Ur Leukocyte Esterase Negative (NEGATIVE) Urine RBC None seen (0-5/HPF) Urine WBC None seen (0-5/HPF) Ur Squamous Epith Cells 0-1 /hpf (0-5/HPF) Urine Bacteria Occasional (0-1) (None) Ur Culture Indicated? Cult not indicated Vol Urine Centrifuged 10ml (spun) MDM Narrative Medical decision making narrative: 79-year-old male with past medical history Parkinson's, diabetes, BPH, hyperlipidemia, hypertension presents to the ED with 1 day of urinary retention. Concern for urinary retention versus UTI versus DVT versus CHF versus other. Will obtain ACS workup, ultrasound lower extremity, UA. Will put in a Moreno catheter to decompress. Moreno catheter was inserted and is draining well. Patient feels comfortable. Ultrasound without evidence of DVT. EKG is normal sinus rhythm with no acute ST-T changes. There is no axis deviation. Chest x-ray with no acute cardiopulmonary abnormality. Labs, troponin, BNP within normal limits. UA without UTI. Discussed findings with patient. Recommend follow-up with urologist Dr. Valencia for further evaluation. ED return precautions were discussed with patient. Patient verbalized understanding. Medical records reviewed: Yes Discharge Plan Departure Patient Disposition: Home Clinical Impression: Acute urinary retention Instructions: DI for Urinary Retention in Men Activity Restrictions/Additional Instructions: You were evaluated in the emergency department today due to being unable to urinate. You were fitted with a Moreno catheter and a leg bag. You will be going home with it with instructions on how to change the bag. The rest of your workup was normal. The ultrasound did not show any blood clots. Your urine is not infected. Your heart and lung workup was normal. Please follow-up with Dr. Valencia at [facility] by calling [phone]. Return to the ED if you have any worsening symptoms. Prescriptions: No Action carbidopa-levodopa 25-100 mg tablet 1 tab PO TID Qty: 270 3RF loratadine [Claritin] 10 mg tablet 10 mg PO DAILY aspirin 81 mg capsule 81 mg PO DAILY amlodipine 5 mg tablet 5 mg PO DAILY Qty: 90 3RF metformin 500 mg tablet 1,000 mg PO BID Qty: 360 3RF pravastatin 40 mg tablet 40 mg PO ONCE PM Qty: 90 3RF Jardiance 10 mg tablet 10 mg PO DAILY Qty: 90 3RF pramipexole 0.25 mg tablet 0.5 mg PO 3XD tamsulosin 0.4 mg capsule 0.4 mg PO BEDTIME Qty: 90 3RF Referrals: Ramón Rosas MD [Primary Care Provider, Internal Medicine] Stand Alone Forms: Patient Portal/API
[2025-04-23 17:32] LABS: NT-proBNP (BNP-Adult 18+) 381 pg/mL (<450); Troponin I < 0.012 ng/mL (0.01-0.034)
[2025-04-23 18:56] VITALS: BP 169/78; PULSE 99; RESP 16; O2SAT 98
== END 2025-04-23 18:57 | disposition home or self-care (01) ==
PROVIDERS: Emergency Provider Student in an Organized Health Care Education/Training Program; Family Provider Internal Medicine; PCP Internal Medicine
DX: R22.42 Localized swelling, mass and lump, left lower limb (principal); R33.8 Other retention of urine; E11.9 Type 2 diabetes mellitus without complications
CPT/HCPCS: 36415; 51798; 71045; 80053; 81001; 83690; 83735; 83880; 84484; 85025; 93005; 93010; 93971; 99284